=== PATIENT | female | born 1980 | race African-American/Black ===

== ENCOUNTER 2018-06-09 09:46 | Emergency (ER) | payer BC, OTHER ==
[2018-06-09 09:51] VITALS: BP 116/71; PULSE 84; TEMP 97.6; BMI 37.2
[2018-06-09] MEDS ORDERED: DIPHTH,PERTUSS(ACELL),TET 0.5 ML DISP.SYRIN IM ONE ×2 (10:17→12:05)
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
== END 2018-06-09 12:46 | disposition home or self-care (01) ==
LOC: JERFT 09:46
PROC: 3E0234Z Introduction of Serum, Toxoid and Vaccine into Muscle, Percutaneous Approach (ICD-10-PCS; principal; 2018-06-09)
DX: S09.8XXA Other specified injuries of head, initial encounter (principal); S00.81XA Abrasion of other part of head, initial encounter; Y04.2XXA Assault by strike against or bumped into by another person, initial encounter; Y93.89 Activity, other specified; Y92.038 Other place in apartment as the place of occurrence of the external cause; Y99.8 Other external cause status; Y07.499 Other family member, perpetrator of maltreatment and neglect
CPT/HCPCS: 70450-TC; 70486-TC; 84703; 90715; 99281-25

== ENCOUNTER 2023-09-14 14:54 | Emergency (ER) | payer OTHER ==
[2023-09-14 15:15] VITALS: BMI 38.7
[2023-09-14 16:37] LABS: BASO % 0.4 % (0-2.0); EOS % 2.4 % (0-4.5); HEMOGLOBIN 12.8 GM/dL (10.7-15.3); LYMPH % 28.6 % (8-40); MCH 29.5 pg (25.7-33.7); MCHC 33.6 g/dl (32.0-36.0); MEAN CELL VOLUME 87.8 fl (80-96); MEAN PLT VOLUME 8.4 fl (7.5-11.1); MONO % 4.7 % (3.8-10.2); NEUT % 63.9 % (42.8-82.8); PLATELET COUNT 271 10^3/uL (134-434); RBC 4.34 M/mm3 (3.60-5.2); RDW 14.2 % (11.6-15.6); WHITE BLOOD COUNT 9.5 K/mm3 (4.0-10.0)
[2023-09-14 16:45] LABS: INR 0.96 (0.83-1.09); PROTHROMBIN TIME (PATIENT) 11.1 SEC (9.7-13.0)
[2023-09-14 16:48] LABS: ACTIVATED PTT 26.7 SECONDS (25.2-36.5)
[2023-09-14 16:55] LABS: POTASSIUM 4.1 mmol/L (3.5-5.1)
[2023-09-14 16:58] LABS: ALBUMIN 3.5 g/dl (3.4-5.0); BLOOD UREA NITROGEN 12.1 mg/dL (7-18); CALCIUM 8.9 mg/dL (8.5-10.1)
[2023-09-14 17:02] LABS: BILIRUBIN,TOTAL 0.3 mg/dL (0.2-1); CREATININE 0.8 mg/dL (0.55-1.3)
[2023-09-14 17:03] LABS: TOT PROT 6.8 g/dl (6.4-8.2)
[2023-09-14 17:06] LABS: N-TERMINAL BNP 16.3 pg/ml (5-125)
[2023-09-14 17:52] LABS: HIV INTERPRETATION NEGATIVE (NEGATIVE)
[2023-09-14] MEDS ORDERED: ALBUTEROL SO4 2.5/IPRATROPIUM 0.5 INH SOL 3 ML VIAL.NEB. NEB ONE (20:45)
[2023-09-14] MEDS: ALBUTEROL SO4 2.5/IPRATROPIUM 0.5 INH SOL 3 ML VIAL.NEB. NEB ONE (20:50)
[2023-09-14 22:37] VITALS: BP 133/72; PULSE 71; RESP 17; TEMP 97.9
== END 2023-09-14 22:37 | disposition home or self-care (01) ==
LOC: JER 14:54
DX: R07.2 Precordial pain (principal); R06.02 Shortness of breath; R05.9 Cough, unspecified; Z20.822 Contact with and (suspected) exposure to COVID-19
CPT/HCPCS: 0241U-QW; 36415; 71045-TC-FY; 71275-TC; 80053; 83880; 84484; 84703; 85025; 85379; 85610; 85730; 86803; 87389; 93005; 93010; 99285-25; Q9967